=== PATIENT | male | born 1955 | race Caucasian/White ===

== ENCOUNTER 2023-06-20 13:17 | Outpatient (CLI) | payer MEDICARE | END 2023-06-20 13:18 | disposition home or self-care (01) | LOC: RAD 13:17 | PROVIDERS: ATTEND Internal Medicine Critical Care Medicine | DX: R06.00 Dyspnea, unspecified (principal) | CPT/HCPCS: 71046 ==

== ENCOUNTER 2023-06-26 12:56 | Outpatient (CLI) | payer MEDICARE | END 2023-06-26 12:57 | disposition home or self-care (01) | LOC: RAD 12:56 | PROVIDERS: ATTEND Internal Medicine Critical Care Medicine | DX: J98.6 Disorders of diaphragm (principal) | CPT/HCPCS: 76000 ==